=== PATIENT | female | born 1955 | race Caucasian/White ===

== ENCOUNTER 2016-05-04 14:10 | Emergency (ER) | payer SELFPAY ==
--- NOTE | 2016-05-04 15:18 | UC ---
Hand/Wrist HPI - HPI Summary HPI Summary: Woke with pain in dorsal and ulnar wrist 4 days ago. Unable to move fingers or even touch them without pain. Denies known injury or hx of problems. No numbness or tingling. - History Of Current Complaint Chief Complaint: UCUpperExtremity Stated Complaint: RIGHT HAND PAIN Time Seen by Provider: 05/04/16 15:06 Hx Obtained From: Patient Hx Last Menstrual Period: n/a ?: No Onset/Duration: Sudden Onset, Lasting Days Severity Initially: Moderate Severity Currently: Moderate Character Of Pain: Aching, Spasmodic, Stiffness Aggravating Factor(s): Movement Alleviating: Rest Associated Signs And Symptoms: Positive: Negative Related History: Dominant Hand Right - Allergies/Home Medications Allergies/Adverse Reactions: Allergies Allergy/AdvReac Type Severity Reaction Status Date / Time Morphine Allergy Unknown severe Verified 06/26/15 13:57 anaphalactic reaction Meperidine [From Demerol HCl] Allergy Swelling Verified 06/26/15 13:57 Of Face,Lips,& Throat PMH/Surg Hx/FS Hx/Imm Hx Endocrine History Of: Reports: Thyroid Disease - hypothyroidism Denies: Diabetes Cardiovascular History Of: Reports: Hypertension Denies: Cardiac Disorders, Pacemaker/ICD, Congestive Heart Failure Respiratory History Of: Denies: COPD, Asthma GI/ History Of: Denies: Ulcer, Renal Disease Psychological History Of: Reports: Depression Cancer History Of: Denies: Breast Cancer - Surgical History Surgical History: Yes Surgery Procedure, Year, and Place: carpal tunnel. . hernia - Family History Known Family History: Positive: Cardiac Disease, Hypertension - Social History Alcohol Use: None Substance Use Type: None Smoking Status (MU): Former Smoker Length of Time of Smoking/Using Tobacco: 2 yrs Have You Smoked in the Last Year: No - Immunization History Most Recent Influenza Vaccination: Last year Most Recent Tetanus Shot: Unknown Most Recent Pneumonia Vaccination: Never Review of Systems Constitutional: Negative Skin: Negative Eyes: Negative ENT: Negative Respiratory: Negative Cardiovascular: Negative Gastrointestinal: Negative Genitourinary: Negative Motor: Negative Neurovascular: Negative Musculoskeletal: Arthralgia Neurological: Negative Psychological: Negative All Other Systems Reviewed And Are Negative: Yes Physical Exam Triage Information Reviewed: Yes Appearance: Well-Appearing, Obese Vital Signs: Initial Vital Signs Temp 98.1 F 05/04/16 14:20 Pulse 93 05/04/16 14:20 Resp 18 05/04/16 14:20 BP 133/73 05/04/16 14:20 Pulse Ox 95 05/04/16 14:20 Vital Signs Reviewed: Yes Eye Exam: Normal Eyes: Positive: Conjunctiva Clear ENT Exam: Normal ENT: Positive: Normal ENT inspection, Hearing grossly normal, Pharynx normal, TMs normal Dental Exam: Normal Neck exam: Normal Respiratory Exam: Normal Respiratory: Positive: Chest non-tender, Lungs clear, Normal breath sounds, No respiratory distress, No accessory muscle use Cardiovascular Exam: Normal Cardiovascular: Positive: RRR, No Murmur Musculoskeletal: Positive: ROM Limited @ - R hand/wrist, unwilling to move 2' to pain Neurological Exam: Normal Psychological Exam: Normal Skin Exam: Normal Hand/Wrist Course/Dx - Differential Dx/Diagnosis Provider Diagnoses: R wrist pain Discharge - Discharge Plan Condition: Stable Disposition: HOME Patient Education Materials: Wrist Injury (ED) Referrals: Manuel Dawson MD [Medical Doctor] - 1 Week Additional Instructions: I do not know what is causing your pain, but there is no indication that you have infection or a broken bone. Keep the area protected and follow up with an orthopedist.
[2016-05-04 15:28] VITALS: BP 133/73
--- NOTE | 2016-05-04 15:34 | RAD ---
INDICATION: Right wrist nontraumatic pain and dorsal ulnar aspect. TECHNIQUE: 2 views of the right wrist were obtained. FINDINGS: The bones are in normal alignment. Joint spaces appear maintained. There is a small well-defined calcific density which projects anterior to the proximal carpal roll measuring 2 mm in size. Joint spaces appear maintained. No significant arthritic changes noted. IMPRESSION: NO EVIDENCE FOR ACUTE FINDING.
== END 2016-05-04 15:40 | disposition home or self-care (01) ==
LOC: UCEAST 14:10
DX: M25.531 Pain in right wrist (principal); M25.831 Other specified joint disorders, right wrist; Z88.5 Allergy status to narcotic agent; Z87.891 Personal history of nicotine dependence
CPT/HCPCS: 99212; G0463

== ENCOUNTER 2017-04-19 15:06 | Emergency (ER) | payer SELFPAY ==
[2017-04-19 15:33] VITALS: BP 126/75
--- NOTE | 2017-04-19 15:54 | UC ---
Back Pain HPI - HPI Summary HPI Summary: 61 yo obese WF c/o right parathoracic back pain x since last night, pain felt suddenly when sitting in a recliner while turning trunk to left side, or bending down. Denies urinary sx or f/c - History of Current Complaint Chief Complaint: UCBackPain Stated Complaint: FLANK PAIN Time Seen by Provider: 04/19/17 15:29 Hx Last Menstrual Period: menopausal Onset/Duration: Sudden Onset Timing: Intermittent Severity Initially: Moderate Severity Currently: Moderate - Allergies/Home Medications Allergies/Adverse Reactions: Allergies Allergy/AdvReac Type Severity Reaction Status Date / Time Morphine Allergy Unknown severe Verified 04/19/17 15:34 anaphalactic reaction Meperidine [From Demerol HCl] Allergy Swelling Verified 04/19/17 15:34 Of Face,Lips,& Throat PMH/Surg Hx/FS Hx/Imm Hx Previously Healthy: Yes - OBESE - Surgical History Surgical History: Yes Surgery Procedure, Year, and Place: carpal tunnel. . hernia - Family History Known Family History: Positive: Cardiac Disease, Hypertension - Social History Alcohol Use: None Substance Use Type: None Smoking Status (MU): Former Smoker Length of Time of Smoking/Using Tobacco: 2 yrs Have You Smoked in the Last Year: No - Immunization History Most Recent Influenza Vaccination: Last year Most Recent Tetanus Shot: Unknown Most Recent Pneumonia Vaccination: Never Review of Systems Constitutional: Negative Skin: Negative Eyes: Negative ENT: Negative Respiratory: Negative Cardiovascular: Negative Gastrointestinal: Negative Genitourinary: Negative Motor: Negative Neurovascular: Negative Musculoskeletal: Other: - right mid back pain Neurological: Other Psychological: Negative All Other Systems Reviewed And Are Negative: Yes Physical Exam Triage Information Reviewed: Yes Vital Signs: Initial Vital Signs Temp 36.8 C 04/19/17 15:23 Pulse 84 04/19/17 15:23 Resp 20 04/19/17 15:23 BP 126/75 04/19/17 15:23 Pulse Ox 99 04/19/17 15:23 Eye Exam: Normal ENT Exam: Normal Dental Exam: Normal Neck exam: Normal Neck: Positive: 1 Respiratory Exam: Normal Respiratory: Positive: Lungs clear Cardiovascular Exam: Normal Abdomen Description: Positive: Nontender, Soft. Negative: CVA Tenderness (R), CVA Tenderness (L), Distended, Guarding Musculoskeletal: Positive: Other: - Pain is felt on right paraspinal muscle around T5-7 region only without radiation with bending forwar and turning to left Neurological Exam: Normal Psychological Exam: Normal Skin Exam: Normal Back Pain Course/Dx - Course Course Of Treatment: UA neg, warm compresses for intermittent back spasm - Differential Dx/Diagnosis Provider Diagnoses: thoracic back pain Discharge - Discharge Plan Condition: Stable Disposition: HOME Referrals: Monika Talley MD [Primary Care Provider] - Additional Instructions: as tolerated
== END 2017-04-19 16:16 | disposition home or self-care (01) ==
LOC: UCEAST 15:06
DX: M54.6 Pain in thoracic spine (principal); Z88.5 Allergy status to narcotic agent; Z88.8 Allergy status to other drugs, medicaments and biological substances; Z87.891 Personal history of nicotine dependence
CPT/HCPCS: 81003; 99211; G0463

== ENCOUNTER 2017-06-22 11:14 | Emergency (ER) | payer OTHER ==
--- OUTSIDE RECORDS SUMMARY | 2017-06-22 11:21 | XMS REPORT | Continuity of Care Document ---
:[address] [facility] [place] Care Team Providers Name Role Phone CABRERA BRITO Admitting Physician CABRERA BRITO Attending Physician NONE, NONE Primary Care Physician Unavailable Hospital Admission Diagnosis Code Admission Diagnosis Date [id number] Tuberculosis screening Social History Element Description Code Description Smoking Status Code Start Date End Date System Smoking Status [id number] Never smoker SNOMED-CT Problems Code Code System Problem Name Start Date End Date Status 37250449 SNOMED-CT Hypercholesterolemia Unknown Active 788668805 SNOMED-CT Cerebrovascular accident Unknown Active 519234022 SNOMED-CT Transient cerebral ischemia Unknown Active 47420453 SNOMED-CT Hypertensive disorder Unknown Active 33865363 SNOMED-CT Hypothyroidism Unknown Active 66122841 SNOMED-CT Carpal tunnel syndrome Unknown Active Medications RxNorm Medication Dose Route Instructions Indications Start End Status Date Date 235491 Amlodipine 10 10 oral orally every Active MG Oral Tablet milligram day 130897 atorvastatin 80 80 oral orally every Active MG Oral Tablet milligram day 172923 clopidogrel 75 75 oral orally every Active MG Oral Tablet milligram day 045475 Furosemide 40 40 oral orally every Active MG Oral Tablet milligram day 4821 Glipizide 2.5 oral orally every Active milligram day Levothyroxine 100 oral orally every Active Oral microgram day 463864 Metformin 500 oral orally 2 times Active hydrochloride milligram per day 500 MG Oral Tablet Allergies Code Code Allergy Type Reaction Severity Start End Date Status System Substance Date 270492 RXNorm Demerol Drug Unknown Active allergy 908782 RXNorm Dilaudid Drug Unknown Active allergy 6387 RXNorm Lidocaine Drug Unknown Active allergy 7052 RXNorm Morphine Drug Unknown Active allergy RXNorm No Known Drug Drug 06/01/19 Inactive Allergies allergy 18 0782 RXNorm Propofol Drug Unknown Active allergy 61419 RXNorm Versed Drug Unknown Active allergy 267056 RXNorm Versed Drug Unknown Active allergy Results No data in the system Vital Signs Vitals Value Date Body Temperature 98.3 F 06/01/2017 Pulse Rate 75 (beats)/min 06/01/2017 BP Systolic 136 mmHg 06/01/2017 BP Diastolic 77 mmHg 06/01/2017 Respiratory Rate 20 (breaths)/min 06/01/2017 Height 58.5 in 06/01/2017 Weight Measured 234.35 lbs 06/01/2017 BSA (Body Surface Area) 1.33446 m2 06/01/2017 BMI (Body Mass Index) 48.5 kg/m2 06/01/2017 Advance Directives PT STATES NO ADVANCE DIRECTIVES Directive Type Effective Date Senior Loss Control Specialist Notes Supporting Document Name Address Phone No Directive Type 06/01/2017 11:53 Not Specified Not Specified Not Specified None No specified Family History No Data Reported Plan of Care No data in the system Procedures No data in the system Encounters Date Code Diagnosis Status (ICD10) - Z111 ENC SCREEN RESPIRATORY TUBERCULOSIS Active Immunizations No data in the system Functional Status No data in the system Hospital Discharge Instructions No data in the system
[2017-06-22 11:47] VITALS: BP 162/83
--- NOTE | 2017-06-22 12:57 | UC ---
Abdominal Pain Female HPI - HPI Summary HPI Summary: 2 DAYS OF RIGHT FLANK PAIN AND RUQ PAIN. WORSE WITH MVMT. NO NAUSEA, FEVER OR URINARY SX. DENIES ANY TRAUMA. - History of Current Complaint Chief Complaint: UCBackPain Stated Complaint: SIDE ABDOMINAL AND BACK PAIN Time Seen by Provider: 06/22/17 11:47 Hx Obtained From: Patient Hx Last Menstrual Period: menopausal Onset/Duration: Gradual Onset, Lasting Days, Still Present Timing: Constant Severity Initially: Moderate Severity Currently: Moderate Pain Intensity: 6 Pain Scale Used: 0-10 Numeric Location: Discrete At: RUQ Radiates: Yes Radiates to: Flank Character: Sharp Aggravating Factor(s): Movement Alleviating Factor(s): Nothing Associated Signs and Symptoms: Positive: Back Pain. Negative: Fever, Cough, Chest Pain, Constipation, Blood in Stool, Urinary Symptoms, Decreased Appetite, Vaginal Bleeding, Vaginal Discharge, Nausea, Vomiting, Diarrhea Allergies/Adverse Reactions: Allergies Allergy/AdvReac Type Severity Reaction Status Date / Time lidocaine Allergy Unknown Verified 06/22/17 11:42 Reaction Details meperidine [From Demerol] Allergy Swelling Verified 06/22/17 11:42 Of Face,Lips,& Throat midazolam [From Versed] Allergy Unknown Verified 06/22/17 11:42 Reaction Details morphine Allergy Anaphylatic Verified 06/22/17 11:42 Shock PMH/Surg Hx/FS Hx/Imm Hx Endocrine History: Diabetes, Hypothyroidism, Dyslipidemia Cardiovascular History: Hypertension Neurological History: CVA - Surgical History Surgical History: Yes Surgery Procedure, Year, and Place: carpal tunnel. . hernia - Family History Known Family History: Positive: Cardiac Disease, Hypertension - Social History Alcohol Use: None Substance Use Type: None Smoking Status (MU): Former Smoker Length of Time of Smoking/Using Tobacco: 2 yrs Have You Smoked in the Last Year: No - Immunization History Most Recent Influenza Vaccination: Last year Most Recent Tetanus Shot: Unknown Most Recent Pneumonia Vaccination: Never Review of Systems Constitutional: Negative Respiratory: Negative Cardiovascular: Negative Gastrointestinal: Abdominal Pain Genitourinary: Negative Musculoskeletal: Myalgia All Other Systems Reviewed And Are Negative: Yes Physical Exam Triage Information Reviewed: Yes Appearance: Well-Appearing, No Pain Distress, Well-Nourished Vital Signs: Initial Vital Signs Temp 98.3 F 06/22/17 11:42 Pulse 88 06/22/17 11:42 Resp 16 06/22/17 11:42 BP 162/83 06/22/17 11:42 Pulse Ox 98 06/22/17 11:42 Vital Signs Reviewed: Yes Eyes: Positive: Conjunctiva Clear ENT: Positive: Hearing grossly normal Neck: Positive: Supple Respiratory Exam: Normal Cardiovascular Exam: Normal Abdomen Description: Positive: Soft, Distended, Other: - LARGE VENTRAL PROTUBERANCE WITH INCREASED INTRA-ABDOMINAL PRESSURE. TTP. Negative: CVA Tenderness (R), CVA Tenderness (L), Guarding Bowel Sounds: Positive: Present Musculoskeletal: Positive: No Edema Neurological: Positive: Alert Psychological: Positive: Age Appropriate Behavior Skin: Negative: rashes Diagnostics - Laboratory Diagnostic Studies Completed/Ordered: URINE DIP UNREMARKABLE Abd Pain Female Course/Dx - Differential Dx/Diagnosis Provider Diagnoses: 1. MUSCLE STRAIN. 2. VENTRAL HERNIA Discharge - Discharge Plan Condition: Stable Disposition: HOME Prescriptions: Acetaminop/Codeine 30 MG TAB* [Tylenol/Codeine 30 MG TAB*] 1 - 2 tab PO Q6H PRN #20 tab MDD 8 PRN Reason: Pain Cyclobenzaprine TAB* [Flexeril TAB*] 10 mg PO BID PRN #30 tab PRN Reason: Pain Patient Education Materials: Muscle Strain (ED), Ventral Hernia (ED) Referrals: Monika Talley MD [Primary Care Provider] - If Needed Trevor Malagon MD [Medical Doctor] - Additional Instructions: YOUR URINE TEST TODAY WAS NORMAL. SYMPTOMS SEEM TO BE CONSISTENT WITH A MUSCLE STRAIN. TRY MUSCLE RELAXER AND TYLENOL #3. BE SURE TO GO THROUGH SLOW RANGE OF MOTION AND STRETCHING EXERCISES DAILY YOU ARE ABLE TO PREVENT STIFFENING UP AND MAKING THE DISCOMFORT WORSE. CONSIDER SURGICAL EVALUATION FOR YOUR PROBABLE VENTRAL HERNIA. GO TO THE ED WITHOUT FAIL IF YOU DEVELOP FEVER, WORSENING PAIN, NAUSEA OR ANY OTHER CONCERNING SYMPTOMS.
== END 2017-06-22 12:58 | disposition home or self-care (01) ==
LOC: UCEAST 11:14
DX: S39.011A Strain of muscle, fascia and tendon of abdomen, initial encounter (principal); X58.XXXA Exposure to other specified factors, initial encounter; Y93.9 Activity, unspecified; Y92.9 Unspecified place or not applicable; K43.9 Ventral hernia without obstruction or gangrene; E11.9 Type 2 diabetes mellitus without complications; Z79.84 Long term (current) use of oral hypoglycemic drugs; E03.9 Hypothyroidism, unspecified; E78.5 Hyperlipidemia, unspecified; I10 Essential (primary) hypertension; Z86.73 Personal history of transient ischemic attack (TIA), and cerebral infarction without residual deficits; Z88.4 Allergy status to anesthetic agent; Z88.5 Allergy status to narcotic agent; Z87.891 Personal history of nicotine dependence
CPT/HCPCS: 81003; 99212; G0463

== ENCOUNTER 2018-03-08 11:29 | Emergency (ER) | payer OTHER ==
[2018-03-08 11:57] VITALS: BP 115/53
--- NOTE | 2018-03-08 12:03 | UC ---
General HPI - HPI Summary HPI Summary: PT C/O BED BUG BITES. 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 PT HAS HAD BITES FOR ABOUT THE PAST WEEK. BITES TO LOWER LEGS, NECK, FOREARMS AND L SIDE OF FACE. BEGIN BIG RED-VERY ITCHY WELTS. SHE SCRATCHES THEN THEY OOZ CLEAR FLUID. APPLYING TOPICAL OTC STEROID CREAM WITH NO RELIEF. - History of Current Complaint Chief Complaint: UCSkin Stated Complaint: SKIN CONCERN Time Seen by Provider: 03/08/18 11:49 Hx Obtained From: Patient Hx Last Menstrual Period: menopausal Onset/Duration: Gradual Onset Timing: Constant Pain Intensity: 10 Associated Signs & Symptoms: Negative: Fever - Allergy/Home Medications Allergies/Adverse Reactions: Allergies Allergy/AdvReac Type Severity Reaction Status Date / Time lidocaine Allergy Unknown Verified 03/08/18 11:47 Reaction Details meperidine [From Demerol] Allergy Swelling Verified 03/08/18 11:47 Of Face,Lips,& Throat midazolam [From Versed] Allergy Unknown Verified 03/08/18 11:47 Reaction Details morphine Allergy Anaphylatic Verified 03/08/18 11:47 Shock PMH/Surg Hx/FS Hx/Imm Hx - Additional Past Medical History Additional PMH: DVT Endocrine History: Diabetes, Thyroid Disease, Dyslipidemia Cardiovascular History: Hypertension Neurological History: CVA - Surgical History Surgical History: Yes Surgery Procedure, Year, and Place: carpal tunnel. . hernia - Family History Known Family History: Positive: Cardiac Disease, Hypertension - Social History Occupation: Employed Full-time Alcohol Use: None Substance Use Type: None Smoking Status (MU): Former Smoker Length of Time of Smoking/Using Tobacco: 2 yrs Have You Smoked in the Last Year: No When Did the Patient Quit Smoking/Using Tobacco: 10 years ago - Immunization History Most Recent Influenza Vaccination: Last year Most Recent Tetanus Shot: Unknown Most Recent Pneumonia Vaccination: Never Vaccination Up to Date: Yes Review of Systems All Other Systems Reviewed And Are Negative: Yes Constitutional: Positive: Negative Skin: Positive: Rash Eyes: Positive: Negative ENT: Positive: Negative Respiratory: Positive: Negative Cardiovascular: Positive: Negative Gastrointestinal: Positive: Negative Genitourinary: Positive: Negative Motor: Positive: Negative Neurovascular: Positive: Negative Musculoskeletal: Positive: Negative Neurological: Positive: Negative Psychological: Positive: Negative Physical Exam Triage Information Reviewed: Yes Appearance: Well-Appearing Vital Signs: Initial Vital Signs Temp 98.1 F 03/08/18 11:50 Pulse 80 03/08/18 11:50 Resp 17 03/08/18 11:50 BP 115/53 03/08/18 11:50 Pulse Ox 97 03/08/18 11:50 Vital Signs Reviewed: Yes Eyes: Positive: Conjunctiva Clear ENT: Positive: Normal ENT inspection Neck: Positive: Supple, Nontender, No Lymphadenopathy Respiratory: Positive: Lungs clear, Normal breath sounds Cardiovascular: Positive: RRR, No Murmur Abdomen Description: Positive: Nontender, No Organomegaly, Soft Bowel Sounds: Positive: Present Musculoskeletal: Positive: ROM Intact Neurological: Positive: Alert Psychological: Positive: Age Appropriate Behavior Skin Exam: Normal, Other - SCATTERED RED RAISED WHEELS L FACE, ANTERIOR NECK, BOTH FOREARMS AND BOTH LOWER LEGS. ALL ARE EXCORIATED. SPOTS ON LEGS ARE HEALING. NO SECONDARY INFECTION. Course/Dx - Differential Dx - Multi-Symptom Provider Diagnoses: INSECT BITES Discharge - Sign-Out/Discharge Documenting (check all that apply): Patient Departure All imaging exams completed and their final reports reviewed: No Studies - Discharge Plan Condition: Stable Disposition: HOME Prescriptions: predniSONE TAB* [Deltasone 20 MG TAB*] 40 mg PO DAILY 5 Days #10 tab Patient Education Materials: Insect Bite or Sting (ED) Referrals: Juan Manuel Morales [Primary Care Provider] - 5 Days - Billing Disposition and Condition Condition: STABLE Disposition: Home
== END 2018-03-08 12:27 | disposition home or self-care (01) ==
LOC: UCCORT 11:29
DX: S80.862A Insect bite (nonvenomous), left lower leg, initial encounter (principal); S80.861A Insect bite (nonvenomous), right lower leg, initial encounter; S10.96XA Insect bite of unspecified part of neck, initial encounter; S50.862A Insect bite (nonvenomous) of left forearm, initial encounter; S50.861A Insect bite (nonvenomous) of right forearm, initial encounter; S00.86XA Insect bite (nonvenomous) of other part of head, initial encounter; E11.9 Type 2 diabetes mellitus without complications; I10 Essential (primary) hypertension; Z88.4 Allergy status to anesthetic agent; Z88.6 Allergy status to analgesic agent; Z88.5 Allergy status to narcotic agent; Z87.891 Personal history of nicotine dependence; W57.XXXA Bitten or stung by nonvenomous insect and other nonvenomous arthropods, initial encounter; Y92.9 Unspecified place or not applicable
CPT/HCPCS: 99212; G0463

== ENCOUNTER 2019-06-21 20:37 | Emergency (ER) | payer OTHER ==
[2019-06-21 21:00] VITALS: BP 146/77
--- NOTE | 2019-06-21 21:36 | UC ---
Respiratory Complaint HPI - HPI Summary HPI Summary: 63 yo diabetic, past hx of small strokes, here with sore throat and sense of phlegm causing cough and difficulty swallowing. No chest pain or shortness of breath. - History of Current Complaint Chief Complaint: UCGeneralIllness Stated Complaint: COUGH,THROAT,CONGESTION Time Seen by Provider: 06/21/19 21:24 Hx Obtained From: Patient Hx Last Menstrual Period: menopausal Onset/Duration: Sudden Onset Timing: Constant Severity Initially: Moderate Pain Intensity: 7 Character: Cough: Nonproductive Aggravating Factors: Exertion, Recumbent Position Alleviating Factors: Upright Position Associated Signs And Symptoms: Positive: URI, Nasal Congestion. Negative: Dyspnea, Fever, Chills, Wheezing, Hemoptysis - Allergies/Home Medications Allergies/Adverse Reactions: Allergies Allergy/AdvReac Type Severity Reaction Status Date / Time lidocaine Allergy Unknown Verified 06/21/19 20:53 Reaction Details meperidine [From Demerol] Allergy Swelling Verified 06/21/19 20:53 Of Face,Lips,& Throat midazolam [From Versed] Allergy Unknown Verified 06/21/19 20:53 Reaction Details morphine Allergy Anaphylatic Verified 06/21/19 20:53 Shock Home Medications: Home Medications Clopidogrel TAB* [Plavix TAB*] 75 mg PO DAILY #30 tab 06/28/15 [Rx Confirmed 09/04] Amlodipine Besylate [Norvasc 5 mg tab] 10 mg PO DAILY 02/21/17 [History Confirmed 06/21/19] Atorvastatin* [Lipitor 40 MG*] 80 mg PO DAILY 02/21/17 [History Confirmed ] Furosemide TAB* [Lasix TAB*] 40 mg PO DAILY 02/21/17 [History Confirmed 06/21/19 ] Levothyroxine TAB* [Synthroid 100 MCG TAB*] 100 mcg PO DAILY 02/21/17 [History Confirmed 06/21/19] glipiZIDE TAB* [Glucotrol TAB*] 5 mg PO DAILY 02/21/17 [History Confirmed ] metFORMIN* [Glucophage 500 MG TAB *] 500 mg PO BID 02/21/17 [History Confirmed 06/21/19] Amoxicillin PO (*) [Amoxicillin 875 MG (*)] 875 mg PO BID #20 tab 06/21/19 [Rx] Menthol [[place]] 3.2 mg MM DAILY PRN 06/21/19 [History Confirmed 06/21/19] PMH/Surg Hx/FS Hx/Imm Hx Endocrine History: Diabetes - note that she does not consider herself diabetic but on 2 oral agents., Hypothyroidism Cardiovascular History: Hypertension Neurological History: CVA - Surgical History Surgical History: Yes Surgery Procedure, Year, and Place: carpal tunnel. . hernia - Family History Known Family History: Positive: Cardiac Disease, Hypertension, Respiratory Disease - father of [place] lung, mother COPD - Social History Occupation: Unemployed Lives: With Family Alcohol Use: None Substance Use Type: None Smoking Status (MU): Former Smoker Length of Time of Smoking/Using Tobacco: 2 yrs Have You Smoked in the Last Year: No When Did the Patient Quit Smoking/Using Tobacco: 10 years ago - Immunization History Most Recent Influenza Vaccination: Last year Most Recent Tetanus Shot: Unknown Most Recent Pneumonia Vaccination: Never Vaccination Up to Date: Yes Review of Systems All Other Systems Reviewed And Are Negative: Yes Constitutional: Positive: Fatigue Skin: Positive: Negative Eyes: Positive: Negative ENT: Positive: Sore Throat Respiratory: Positive: Cough. Negative: Shortness Of Breath Cardiovascular: Negative: Palpitations, Chest Pain Gastrointestinal: Positive: Negative Genitourinary: Positive: Negative Motor: Positive: Negative Neurovascular: Positive: Negative Musculoskeletal: Positive: Negative Neurological/Mental Status: Positive: Negative Psychological: Positive: Negative Is Patient Immunocompromised?: No Physical Exam Triage Information Reviewed: Yes Appearance: No Pain Distress, Ill-Appearing - looks mildly unwell, Obese Vital Signs: Initial Vital Signs Temp 97.9 F 06/21/19 20:56 Pulse 99 06/21/19 20:56 Resp 18 06/21/19 20:56 BP 146/77 06/21/19 20:56 Pulse Ox 97 06/21/19 20:56 Eyes: Positive: Conjunctiva Clear ENT: Positive: Pharynx normal, TMs normal Dental Exam: Other - edentulous Neck: Positive: Supple, Nontender, No Lymphadenopathy Respiratory: Positive: Lungs clear, Normal breath sounds Cardiovascular: Positive: RRR, No Murmur Bowel Sounds: Positive: Present Musculoskeletal Exam: Normal Neurological Exam: Normal Psychological Exam: Normal Skin Exam: Normal Respiratory Course/Dx - Course Course Of Treatment: begin amoxcillin for treatment of upper respiratory symptoms given her hx of poor health. States that she has a hx of progressive respiratory illness. - Differential Dx/Diagnosis Differential Diagnosis/HQI/PQRI: Asthma, Bronchitis, Laryngitis, Lower Resp Infection, Sinusitis Provider Diagnosis: Sinusitis Discharge ED - Sign-Out/Discharge Documenting (check all that apply): Patient Departure All imaging exams completed and their final reports reviewed: No Studies - Discharge Plan Condition: Stable Disposition: HOME Prescriptions: Amoxicillin PO (*) [Amoxicillin 875 MG (*)] 875 mg PO BID #20 tab Patient Education Materials: Sinusitis (ED) Referrals: Nikko Mosley MD [Primary Care Provider] - Additional Instructions: Take the full course of antibiotic treatment. The phlegm in your through might be relieved by use of guiafensin (Mucinex) 600mg twice daily. Follow up if you develop fever, worsening shortness of breath or chest pain. - Billing Disposition and Condition Condition: STABLE Disposition: Home
[2019-06-21] MEDS: Amoxicillin PO (*) 500 MG CAP PO ONE (21:44)
== END 2019-06-21 21:50 | disposition home or self-care (01) ==
LOC: UCCORT 20:37
DX: J32.9 Chronic sinusitis, unspecified (principal); R05 Cough; E11.9 Type 2 diabetes mellitus without complications; I10 Essential (primary) hypertension; E03.9 Hypothyroidism, unspecified; E66.9 Obesity, unspecified; Z88.4 Allergy status to anesthetic agent; Z88.5 Allergy status to narcotic agent; Z88.1 Allergy status to other antibiotic agents; Z79.84 Long term (current) use of oral hypoglycemic drugs; Z79.890 Hormone replacement therapy; Z86.73 Personal history of transient ischemic attack (TIA), and cerebral infarction without residual deficits; Z87.891 Personal history of nicotine dependence; Z79.899 Other long term (current) drug therapy
CPT/HCPCS: 99212; A9270-GY; G0463